=== PATIENT | female | born 1950 | race Caucasian/White ===

== ENCOUNTER 2023-04-07 09:30 | Outpatient (RCR) | payer MEDICARE, SELFPAY ==
[2023-02-10 08:08] VITALS: BMI 30.4
[2023-02-10 14:00] VITALS: BMI 30.4
[2023-04-07 10:00] VITALS: BMI 30.2; BMI 30.4
== END 2023-05-09 09:15 | disposition home or self-care (01) ==
LOC: ANHDMC 09:30
PROVIDERS: Visit Provider Internal Medicine
DX: E11.9 Type 2 diabetes mellitus without complications (principal); Z71.3 Dietary counseling and surveillance
CPT/HCPCS: 97802; 97803